=== PATIENT | female | born 1985 | race Caucasian/White ===

== ENCOUNTER 2024-11-14 02:37 | Emergency (ER) | payer MEDICAID, SELFPAY ==
[2024-11-14 02:39] VITALS: BMI 41.5
[2024-11-14 03:37] VITALS: BP 145/93; PULSE 75; RESP 18; TEMP 37.1; O2SAT 100
[2024-11-14] MEDS: ONDANSETRON ODT 4 MG TABRAP PO (03:51)
[2024-11-14 04:06] LABS: Collection Type, Urine Clean Catch
[2024-11-14 04:15] LABS: Bacteria,Urine Rare; Bilirubin,Urine Negative (Negative); Blood,Urine Negative (Negative); Clarity,Urine Turbid (Clear/Hazy); Color,Urine Yellow (Lt Yel-Yel); Glucose, Urine Negative (Negative); Ketones,Urine Negative (Negative); Leukocyte Esterase,Urine Positive (Negative); Nitrite,Urine Negative (Negative); Protein,Urine Trace (Neg - Trace); RBC,Urine 5 /hpf (0-3); Specific Gravity,Urine 1.035 (1.001-1.035); Squamous Epithelial Cell,Urine 23 /hpf (0-5); WBC,Urine 53 /hpf (0-5)
[2024-11-14 04:16] LABS: HCG Qualitative,Urine Negative
[2024-11-14 04:35] LABS: Amphetamine/Methamp Scrn,U Negative (Negative); Barbiturate Screen,Urine Negative (Negative); Benzodiazepines Screen,Urine Negative (Negative); Benzoylecgonine Screen, Ur Negative (Negative); Fentanyl Screen,Urine Negative (Negative); Opiate Screen,Urine Negative (Negative); THC Screen,Urine Negative (Negative)
[2024-11-14 04:41] LABS: Basophils % (Auto) 0 % (0-2.5); Eosinophils # (Auto) 0.2 Thou/mm3 (0.0-0.5); Eosinophils % (Auto) 2 % (0-10); Hematocrit 37.4 % (36.0-46.0); Hemoglobin 11.7 g/dL (12.0-16.0); Immature Granulocytes % (Auto) 0 % (0-0); Immature Granulocytes Auto 0.05 Thou/mm3 (0.00-0.00); Lymphocytes # (Auto) 1.6 Thou/mm3 (1.0-4.8); Lymphocytes % (Auto) 14 % (10-50); Mean Corpuscular HGB Conc 31.3 g/dl (31.0-37.0); Mean Corpuscular Hemoglobin 22.4 pg (25.0-35.0); Mean Corpuscular Volume 72 fL (80-100); Monocytes # (Auto) 0.9 Thou/mm3 (0.0-0.8); Monocytes % (Auto) 8 % (0-12); Neutrophils # (Auto) 8.4 Thou/mm3 (1.8-7.7); Neutrophils % (Auto) 75 % (37-80); Nucleated Red Blood Cell % 0 /100 WBC (0); Platelet Count 262 Thou/mm3 (140-440); RDW Standard Deviation 37.6 fL (36.4-46.3); Red Blood Count 5.23 Miln/mm3 (4.00-5.20); White Blood Count 11.2 Thou/mm3 (3.6-11.0)
[2024-11-14] MEDS: DICYCLOMINE 10 MG CAPSULE PO (04:46)
[2024-11-14 05:01] LABS: Alanine Aminotransferase 55 U/L (10-49); Albumin, Serum 4.5 gm/dL (3.5-5.0); Albumin/Globulin Ratio 1.9 (1.2-2.2); Alkaline Phosphatase 118 U/L (46-116); Anion Gap 9 (7-16); Aspartate Amino Transferase 37 U/L (0-34); BUN/Creatinine Ratio 9 Ratio (12-20); Bilirubin,Total 0.4 mg/dL (0.3-1.2); Blood Urea Nitrogen 10 mg/dL (9-23); Calcium 9.3 mg/dL (8.3-10.6); Calcium (Corrected) 9.3 mg/dL (8.5-10.1); Carbon Dioxide 26.5 mMol/L (20.0-31.0); Chloride 102 mMol/L (98-107); Creatinine (Component) 1.1 mg/dL (0.6-1.3); Estimated Creatinine Clearance 90.4 mL/min (>60); Globulin 2.4 gm/dL (2.3-3.5); Glucose 98 mg/dL (74-106); Lipase 33 U/L (12-53); Osmolality,Calculated 272 (275-295); Potassium 3.6 mMol/L (3.4-5.1); Sodium 137 mMol/L (136-145); Total Protein 6.9 gm/dL (5.7-8.2); eGFR > 60 See Note
[2024-11-14 05:09] VITALS: RESP 16
--- NOTE | 2024-11-14 06:01 | EDNOTE_ITS ---
<Statement entered by Frances Wynn MD - 11/14/24 18:52> As co-signing physician, I was present and available for consult prn. I concur with the plan and care as documented by the midlevel provider. Nausea/Vomit./Diarrhea-RME/HPI General Chief complaint: Nausea/Vomiting/Diarrhea Stated complaint: DIARRHEA, N/V, WEAK Time Seen by Provider: 11/14/24 03:42 Arrival date/time: 11/14/24 02:37 39F with no significant PMH presents to ED with several days of N/V, ab cramping, and non-bloody diarrhea. Limitations: no limitations Related Data Home Medications ?Medication ?Instructions ?Recorded ?Confirmed vitamin no.[id number] 1 cap PO QAM 01/11/23 27 mg iron-1 mg-200 mg capsule Previous Rx's ?Medication ?Instructions ?Recorded ondansetron 4 mg disintegrating 4 mg PO Q8H PRN nausea and 11/14/24 tablet vomiting #14 tabs Allergies Allergy/AdvReac Type Severity Reaction Status Date / Time hydromorphone (From Dilaudid) Allergy Severe BRADYCARDIA Verified 11/14/24 02:38 promethazine AdvReac Severe HOT AND Verified 11/14/24 02:38 FLUSHED, OUT OF RIGHT MIND Review of Systems Review of Systems Systems Reviewed: All systems reviewed, normal except as documented Constitutional Constitutional: Reports system reviewed and no additional complaints, except as documented, Denies fever(s) and Denies headache(s) ENT Ears, Nose, Mouth, and Throat: Denies disequilibrium and Denies headache(s) Cardiovascular Cardiovascular: Reports system reviewed and no additional complaints, except as documented, Denies chest pain and Denies dyspnea Respiratory Respiratory: Reports system reviewed and no additional complaints, except as documented, Denies cough and Denies dyspnea Gastrointestinal Gastrointestinal: Reports system reviewed and no additional complaints, except as documented, Reports as per HPI, Reports abdominal pain, Reports diarrhea, Reports nausea and Reports vomiting Neurologic Neurologic: Reports system reviewed and no additional complaints, except as documented, Denies confusion, Denies disequilibrium and Denies headache(s) Psychiatric Psychiatric: Denies confusion Past Medical History Past Medical History NEUROLOGIC: Negative Neurological Disorders, Seizures or Migraine CARDIAC: Positive Cardiac Disorders, Cardiac Arrhythmia (was told 3 yrs, she has bradycardia in 30's but has not since safety sitter) and Hypertension (HX OF HTN); Negative Congestive Heart Failure RESPIRATORY: Negative Chronic Obstructive Pulmonary Disease (COPD) GASTROINTESTINAL: Positive Gastrointestinal Disorders and Obesity GENITOURINARY: Negative Genitourinary Disorders or Renal Disease REPRODUCTIVE: Positive Previous Pregnancies (4, 2 children); Negative Endometriosis MUSCULOSKELETAL: Positive Musculoskeletal Disorders (CURVATURE OF SPINE) and Arthritis (left shoulder) ENDOCRINE: Negative Endocrine Disorders, Diabetes Mellitus Type 1 or Diabetes Mellitus Type 2 HEMATOLOGIC: Positive Blood Disorders and Anemia OTHER HISTORY: Positive Hospitalization (surgery) and Anesthesia Reactions (Bradycardia, had to be hospitalized); Negative Autoimmune Disease, Shingles, Blood Transfusions, Blood Transfusion Reaction, Clostridium Difficile or Cancer Family History FAMILY HISTORY: Positive Family Respiratory Disorders (MOTHER) and Family Cardiac Disorders (FATHER, PATERNAL GRANDPARENTS); Negative Family Psychiatric Problems, Family Gastrointestinal Problems, Family Cancer, Family Surgery or Family Anesthesia Reaction Surgical History SURGICAL: Positive Abdominal Surgery, Gastric Bypass Surgery (GASTRIC SLEEVE), Arthroscopy (right knee) and Section (2) Social History SMOKING STATUS: Never smoker SECOND HAND EXPOSURE: Yes ED Exam General Limitations: Present no limitations General appearance: Present alert and in no apparent distress Head Head exam: Present atraumatic Eye Eye exam: Present normal appearance, PERRL and EOMI ENT ENT exam: Present normal exam, normal oropharynx and mucous membranes moist Neck Neck exam: Present normal inspection, full ROM and trachea midline Chest Chest inspection: Present normal inspection and symmetric chest wall rise Respiratory Respiratory exam: Present normal lung sounds bilaterally Cardiovascular Cardiovascular exam: Present regular rate, normal rhythm and normal heart sounds Abdominal Exam Abdominal exam: Present soft and normal bowel sounds Extremities Exam Extremities exam: Present normal inspection and full ROM Back Exam Back exam: Present normal inspection and full ROM Neurological Exam Neurological exam: Present alert, oriented X3 and CN II-XII intact Psychiatric Psychiatric exam: Present normal affect and normal mood Skin Skin exam: Present warm, dry, intact and normal color Course Quality Measures none Orders Category Date Time Status CBC Stat Lab 11/14/24 04:28 Completed CMP [Comprehensive Metabolic Panel] Stat Lab 11/14/24 04:28 Completed Drug Screen,Urine Stat Lab 11/14/24 04:01 Completed HCG Qualitative,Urine Stat Lab 11/14/24 04:01 Completed Lipase Stat Lab 11/14/24 04:28 Completed UA [Urinalysis] Stat Lab 11/14/24 04:01 Completed Dicyclomine [Bentyl] Med 11/14/24 04:38 Discontinued 10 mg PO X1 ONE Ondansetron Odt [Zofran Odt] Med 11/14/24 03:42 Discontinued 4 mg PO X1 ONE Vital Signs Vital signs: Vital Signs Temperature 98.8 F 11/14/24 03:37 Pulse Rate 75 11/14/24 03:37 Respiratory Rate 18 11/14/24 03:37 Blood Pressure 145/93 H 11/14/24 03:37 Pulse Oximetry (%) 100 11/14/24 03:37 Oxygen Delivery Method Room Air 11/14/24 03:37 O2 at 100% on RA and WNLs Nausea/Vomiting/Diarrhea MDM Narrative MDM Narrative:: 39F with no significant PMH presents to ED with several days of N/V, ab cramping, and non-bloody diarrhea. Physical exam reveals no ab tenderness. Patient is afebrile, calm, and alert. Minimal leukocytosis. CMP unremarkable except for mild elevation in LFTs. Lipase normal. UA contaminated. Likely viral gastroenteritis. PO challenge passed. Patient data External records reviewed:: [facility] previous records Clinical information provided by:: patient Social determinants that could affect healthcare access:: none Patient has the following chronic illnesses:: none How is presenting disease/condition affected by chronic disease/condition?: no chronic disease Evaluation data The following diagnostics were reviewed and interpreted by me:: lab results Lab and/or radiology exams considered but not ordered:: ordered Interpretation Summary: above Medications / Prescriptions Medications / Prescriptions considered but not ordered:: ordered Medication administrations:: Medication Administration History Discontinued Medications Dicyclomine HCl (Dicyclomine 10 Mg Capsule) 10 mg PO X1 ONE Stop: 11/14/24 04:39 Last Admin: 11/14/24 04:46 Dose: 10 mg Documented By: CVL Ondansetron HCl (Ondansetron Odt 4 Mg Tabrap) 4 mg PO X1 ONE; Protocol Stop: 11/14/24 03:43 Last Admin: 11/14/24 03:51 Dose: 4 mg Documented By: CVL above Consultations Consultation(s) initiated? (list below): No Diagnosis Nausea Differential Diagnosis: traveler's diarrhea, food poisoning, gastroenteritis, clostridium difficile infection, drug-induced nausea and vomiting and dehydration Most likely diagnosis given after review of the tests above:: gastroenteritis Admission Indicated Admission indicated?: not indicated Admission Request Was there a request for admission?: No Disposition Plan Disposition Plan: Discharge Discharge Attestation Discharge Attestation: The patient and all family members were given an opportunity to ask questions and understood the discharge instructions. Discharge instructions specifically effects, indications for sooner follow up or return to the emergency department, and the expected course of current diagnosis. Patient condition: Stable Discharge Plan Plan Patient Disposition: HOME (Self Care) Discharge Disposition comment: Stable Prescriptions/Referrals Prescriptions/Med Rec: New ondansetron 4 mg tablet,disintegrating 4 mg PO Q8H PRN (Reason: nausea and vomiting) Qty: 14 0RF No Action vit #[id number] 27 mg iron-1 mg-200 mg Capsule 1 cap PO QAM Referrals: No Primary/Family,Physician [Primary Care Provider] - In 1 week Problem List Clinical Impression: Gastroenteritis Patient/Caregiver Discharge Instructions Education Materials: ED Gastroenteritis, Viral (Adult) Additional Instructions: Please follow-up with PCP within 24-48 hours and return immediately if symptoms worsen. Keep hydrated. Advance diet as tolerated. Print Language: Estonian Stand Alone Forms: Patient Portal Info Letter ROHINI/KAYLA Supervising Physician ROHINI/KAYLA Supervising Physician: Dr. Wynn
== END 2024-11-14 05:10 | disposition home or self-care (01) ==
PROVIDERS: Physician Assistant; Emergency Provider Emergency Medicine
DX: K52.9 Noninfective gastroenteritis and colitis, unspecified (principal)
CPT/HCPCS: 36415; 80053; 80307; 81001; 81025; 83690; 85025; 99283; Q0162; A9270

== ENCOUNTER 2024-12-25 04:05 | Emergency (ER) | payer MEDICAID, SELFPAY ==
[2024-12-25 04:08] VITALS: BMI 40.7
[2024-12-25 04:25] VITALS: BP 162/95; PULSE 80; RESP 18; TEMP 36.6; O2SAT 98
--- NOTE | 2024-12-25 05:43 | EDNOTE_ITS ---
ED Skin Abcess FB-RME/HPI General Chief complaint: General Adult/Misc Complain Stated complaint: NOSE PIERCING BLEEDING Time Seen by Provider: 12/25/24 04:34 Arrival date/time: 12/25/24 04:05 39F with no significant PMH presents to ED with nose piercing bleeding earlier today. Patient has it pierced several weeks ago. When she took it out today she noticed there was some pus and a lot of blood came out. Patient stopped it, but would like to be evaluated and needs a work-note for today. Limitations: no limitations Related Data Home Medications ?Medication ?Instructions ?Recorded ?Confirmed vitamin no.[id number] 1 cap PO QAM 01/11/23 27 mg iron-1 mg-200 mg capsule Previous Rx's ?Medication ?Instructions ?Recorded ondansetron 4 mg disintegrating 4 mg PO Q8H PRN nausea and 11/14/24 tablet vomiting #14 tabs doxycycline hyclate 100 mg tablet 100 mg PO BID 7 days #14 tabs 12/25/24 Allergies Allergy/AdvReac Type Severity Reaction Status Date / Time hydromorphone (From Dilaudid) Allergy Severe BRADYCARDIA Verified 12/25/24 04:12 promethazine AdvReac Severe HOT AND Verified 12/25/24 04:12 FLUSHED, OUT OF RIGHT MIND Review of Systems Review of Systems Systems Reviewed: All systems reviewed, normal except as documented Constitutional Constitutional: Reports system reviewed and no additional complaints, except as documented, Denies fever(s) and Denies headache(s) ENT Ears, Nose, Mouth, and Throat: Denies disequilibrium and Denies headache(s) Cardiovascular Cardiovascular: Reports system reviewed and no additional complaints, except as documented, Denies chest pain and Denies dyspnea Respiratory Respiratory: Reports system reviewed and no additional complaints, except as documented, Denies cough and Denies dyspnea Gastrointestinal Gastrointestinal: Reports system reviewed and no additional complaints, except as documented, Denies abdominal pain, Denies nausea and Denies vomiting Integumentary/Breasts Skin/Breast: Reports as per HPI and Reports skin pain Neurologic Neurologic: Reports system reviewed and no additional complaints, except as documented, Denies confusion, Denies disequilibrium and Denies headache(s) Psychiatric Psychiatric: Denies confusion Past Medical History Past Medical History NEUROLOGIC: Negative Neurological Disorders, Seizures or Migraine CARDIAC: Positive Cardiac Disorders, Cardiac Arrhythmia (was told 3 yrs, 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) and Hypertension (HX OF HTN); Negative Congestive Heart Failure RESPIRATORY: Negative Chronic Obstructive Pulmonary Disease (COPD) GASTROINTESTINAL: Positive Gastrointestinal Disorders and Obesity GENITOURINARY: Negative Genitourinary Disorders or Renal Disease REPRODUCTIVE: Positive Previous Pregnancies (4, 2 children); Negative Endometriosis MUSCULOSKELETAL: Positive Musculoskeletal Disorders (CURVATURE OF SPINE) and Arthritis (left shoulder) ENDOCRINE: Negative Endocrine Disorders, Diabetes Mellitus Type 1 or Diabetes Mellitus Type 2 HEMATOLOGIC: Positive Blood Disorders and Anemia OTHER HISTORY: Positive Hospitalization (surgery) and Anesthesia Reactions (Bradycardia, had to be hospitalized); Negative Autoimmune Disease, Shingles, Blood Transfusions, Blood Transfusion Reaction, Clostridium Difficile or Cancer Family History FAMILY HISTORY: Positive Family Respiratory Disorders (MOTHER) and Family Cardiac Disorders (FATHER, PATERNAL GRANDPARENTS); Negative Family Psychiatric Problems, Family Gastrointestinal Problems, Family Cancer, Family Surgery or Family Anesthesia Reaction Surgical History SURGICAL: Positive Abdominal Surgery, Gastric Bypass Surgery (GASTRIC SLEEVE), Arthroscopy (right knee) and Section (2) Social History SMOKING STATUS: Never smoker SECOND HAND EXPOSURE: Yes ED Exam General Limitations: Present no limitations General appearance: Present alert and in no apparent distress Head Head exam: Present atraumatic Eye Eye exam: Present normal appearance, PERRL and EOMI ENT ENT exam: Present normal oropharynx and mucous membranes moist Expanded ENT Exam Nose exam: Present other (mild redness and dried blood around L external nare) Neck Neck exam: Present normal inspection, full ROM and trachea midline Chest Chest inspection: Present normal inspection and symmetric chest wall rise Respiratory Respiratory exam: Present normal lung sounds bilaterally Cardiovascular Cardiovascular exam: Present regular rate, normal rhythm and normal heart sounds Abdominal Exam Abdominal exam: Present soft and normal bowel sounds Extremities Exam Extremities exam: Present normal inspection and full ROM Back Exam Back exam: Present normal inspection and full ROM Neurological Exam Neurological exam: Present alert, oriented X3 and CN II-XII intact Psychiatric Psychiatric exam: Present normal affect and normal mood Skin Skin exam: Present warm, dry, intact and normal color Course Quality Measures none Vital Signs Vital signs: Vital Signs Temperature 97.9 F 12/25/24 04:25 Pulse Rate 80 12/25/24 04:25 Respiratory Rate 18 12/25/24 04:25 Blood Pressure 162/95 H 12/25/24 04:25 Pulse Oximetry (%) 98 12/25/24 04:25 Oxygen Delivery Method Room Air 12/25/24 04:25 O2 at 98% on RA and WNLs Skin / Abscess / Foreign Body MDM Narrative MDM Narrative:: 39F with no significant PMH presents to ED with nose piercing bleeding earlier today. Patient has it pierced several weeks ago. When she took it out today she noticed there was some pus and a lot of blood came out. Patient stopped it, but would like to be evaluated and needs a work-note for today. Physical reveals reveals minimally redness around L nare and some dried blood. Internal nares normal. Patient is afebrile, calm, and alert. BP noted to be a bit high, would be contributing to bleeding. Counseled to see PCP. Will give short course of ABX due to discharge. Work note given. Patient data External records reviewed:: [facility] previous records Clinical information provided by:: patient Social determinants that could affect healthcare access:: none Patient has the following chronic illnesses:: none How is presenting disease/condition affected by chronic disease/condition?: no chronic disease Evaluation data The following diagnostics were reviewed and interpreted by me:: other (specify) (none) Lab and/or radiology exams considered but not ordered:: not ordered Interpretation Summary: n/a Medications / Prescriptions Medications or Prescriptions considered but not ordered:: not ordered Medication administrations:: n/a Consultations Consultation(s) initiated? (list below): No Diagnosis Skin/Abscess Differential Diagnosis: abscess of skin or subcutaneous tissue, viral exanthem, dermatophytosis, urticaria, herpes zoster, allergic reaction to drug, cellulitis, eczema, insect bites, impetigo, contact dermatitis and other (infected nose piercing) Most likely diagnosis given after review of the tests above:: infected nose piercing Admission Indicated Admission indicated?: not indicated Admission Request Was there a request for admission?: No Disposition Plan Disposition Plan: Discharge Discharge Attestation Discharge Attestation: The patient and all family members were given an opportunity to ask questions and understood the discharge instructions. Discharge instructions specifically effects, indications for sooner follow up or return to the emergency department, and the expected course of current diagnosis. Patient condition: Stable Discharge Plan Plan Patient Disposition: HOME (Self Care) Discharge Disposition comment: Stable Prescriptions/Referrals Prescriptions/Med Rec: New doxycycline hyclate 100 mg tablet 100 mg PO BID 7 Days Qty: 14 0RF No Action vit #[id number] 27 mg iron-1 mg-200 mg Capsule 1 cap PO QAM ondansetron 4 mg tablet,disintegrating 4 mg PO Q8H PRN (Reason: nausea and vomiting) Qty: 14 0RF Problem List Clinical Impression: Infected nasal piercing, Elevated blood pressure reading in office without diagnosis of hypertension Patient/Caregiver Discharge Instructions Education Materials: ED Pierced Ear Infection Additional Instructions: Please follow-up with PCP within 24-48 hours and return immediately if symptoms worsen. See PCP about BP control. Print Language: Bulgarian Stand Alone Forms: Work/School Release, Patient Portal Info Letter PA/KAYLA Supervising Physician PA/KAYLA Supervising Physician: Dr. Parsons
== END 2024-12-25 04:40 | disposition home or self-care (01) ==
LOC: SERX 05:30
PROVIDERS: Emergency Provider Emergency Medicine; PCP Nurse Practitioner Family
DX: L08.89 Other specified local infections of the skin and subcutaneous tissue (principal); R03.0 Elevated blood-pressure reading, without diagnosis of hypertension
CPT/HCPCS: 99282